=== PATIENT | male | born 1960 | race Caucasian/White ===

== ENCOUNTER 2020-12-25 09:24 | Inpatient (IN) | payer OTHER ==
[2020-12-25 09:51] VITALS: BMI 21.9
[2020-12-25] MEDS ORDERED: NICOTINE POLACRILEX 2 MG GUM BUC PRN (10:27)
[2020-12-25] MEDS ORDERED: BISMUTH SUBSALICYLATE 262 MG/15 ML BTL PO PRN (10:27)
[2020-12-25] MEDS ORDERED: MENTHOL/PHENOL 1 EACH UD MM PRN (10:27)
[2020-12-25] MEDS ORDERED: MAGNESIUM HYDROX 2400MG/30ML ORAL SUSPENSION 30 ML CUP PO PRN (10:27)
[2020-12-25] MEDS ORDERED: METHADONE HCL 10 MG TABLET (FOR DETOX USE ONLY) PO ONE (10:27)
[2020-12-25] MEDS ORDERED: ACETAMINOPHEN 325 MG TABLET (FP) PO PRN ×2 (10:27)
[2020-12-25] MEDS ORDERED: IBUPROFEN 400 MG TABLET (FP) PO PRN (10:27)
[2020-12-25] MEDS ORDERED: MAGNESIUM CITRATE 300 ML BOTTLE PO PRN (10:27)
[2020-12-25] MEDS: NICOTINE 14 MG/24 HOURS TOPICAL PATCH TD SCH (11:50)
[2020-12-25] MEDS: ONDANSETRON *ODT* 4 MG TABLET SL PRN (11:50)
[2020-12-25] MEDS: FAMOTIDINE 20 MG TABLET PO SCH (11:50)
[2020-12-25] MEDS: PRENATAL VITAMINS W/ FOLIC ACID TABLET (FP) PO SCH (11:50)
[2020-12-25] MEDS: LISINOPRIL 10 MG TABLET PO SCH (11:50)
[2020-12-25] MEDS: ALBUTEROL SO4 HFA INHALER IH PRN (11:55)
[2020-12-25] MEDS ORDERED: hydrOXYzine PAMOATE 25 MG CAPSULE (FP) PO SCH (14:00)
[2020-12-25 16:30] LABS: HEMATOCRIT 41.1 % (35.4-49); HEMOGLOBIN 13.5 GM/dL (11.7-16.9); MCH 29.7 pg (25.7-33.7); MCHC 32.9 g/dl (32.0-35.9); MEAN CELL VOLUME 90.4 fl (80-96); MEAN PLT VOLUME 8.6 fl (7.5-11.1); PLATELET COUNT 265 10^3/uL (134-434); RBC 4.54 M/mm3 (4.00-5.60); RDW 13.9 % (11.9-15.9); WHITE BLOOD COUNT 8.6 K/mm3 (4.0-10.0)
[2020-12-25 16:40] LABS: BLOOD UREA NITROGEN 13.1 mg/dL (7-18); CALCIUM 9.1 mg/dL (8.5-10.1)
[2020-12-25 16:41] LABS: ALBUMIN 3.9 g/dl (3.4-5.0)
[2020-12-25 16:43] LABS: CREATININE 0.8 mg/dL (0.55-1.3); TOT PROT 7.6 g/dl (6.4-8.2)
[2020-12-25 16:47] LABS: BILIRUBIN,TOTAL 1.1 mg/dL (0.2-1)
[2020-12-25 17:27] LABS: HIV INTERPRETATION NEGATIVE (NEGATIVE)
[2020-12-25] MEDS: AMITRIPTYLINE HCL 25 MG TABLET PO SCH (22:40)
[2020-12-25] MEDS: THIAMINE HCL 100 MG TABLET (FP) PO SCH (22:41)
[2020-12-25] MEDS: MONTELUKAST NA 10 MG TABLET PO SCH (22:41)
[2020-12-25] MEDS: MELATONIN 5 MG TABLETS PO SCH (22:43)
[2020-12-26] MEDS: hydrOXYzine PAMOATE 25 MG CAPSULE (FP) PO PRN ×2 (08:42→20:05)
[2020-12-26] MEDS: METHOCARBAMOL 500 MG TABLET PO PRN ×2 (08:42→20:05)
[2020-12-26] MEDS ORDERED: METHADONE HCL 10 MG TABLET (FOR DETOX USE ONLY) ONE (09:20)
[2020-12-26] MEDS ORDERED: METHADONE HCL 5 MG TABLET (FOR DETOX USE ONLY) ONE (09:20)
[2020-12-26] MEDS ORDERED: METHADONE (DETOX) 20 MG, METHADONE (DETOX) 5 MG PO ONE (10:00)
[2020-12-26] MEDS: NICOTINE 14 MG/24 HOURS TOPICAL PATCH TD SCH (10:13)
[2020-12-26] MEDS: PRENATAL VITAMINS W/ FOLIC ACID TABLET (FP) PO SCH (10:13)
[2020-12-26] MEDS: FAMOTIDINE 20 MG TABLET PO SCH (10:13)
[2020-12-26] MEDS: LISINOPRIL 10 MG TABLET PO SCH (10:13)
[2020-12-26] MEDS: ALBUTEROL SO4 HFA INHALER IH PRN (10:16)
[2020-12-26] MEDS: THIAMINE HCL 100 MG TABLET (FP) PO SCH (22:15)
[2020-12-26] MEDS: MONTELUKAST NA 10 MG TABLET PO SCH (22:15)
[2020-12-26] MEDS: AMITRIPTYLINE HCL 25 MG TABLET PO SCH (22:15)
[2020-12-26] MEDS: MAG HYDROX/AL HYDROX/SIMETH 30 ML UNIT-DOSE CUP PO PRN (22:16)
[2020-12-26] MEDS: MELATONIN 5 MG TABLETS PO SCH (22:53)
[2020-12-27] MEDS: ONDANSETRON *ODT* 4 MG TABLET SL PRN ×3 (00:33→20:18)
[2020-12-27] MEDS ORDERED: TRIMETHOBENZAMIDE HCL 200MG/2ML INJ IM ONE (02:48)
[2020-12-27] MEDS ORDERED: DICYCLOMINE HCL 10 MG CAPSULE PO PRN (07:38)
[2020-12-27] MEDS: diazePAM 5 MG TABLET PO PRN ×2 (09:05→20:45)
[2020-12-27] MEDS: METHOCARBAMOL 500 MG TABLET PO PRN (09:06)
[2020-12-27] MEDS ORDERED: METHADONE HCL 10 MG TABLET (FOR DETOX USE ONLY) PO ONE (10:00)
[2020-12-27] MEDS ORDERED: PANTOPRAZOLE 40 MG TABLET PO ONE (10:06)
[2020-12-27] MEDS: NICOTINE 14 MG/24 HOURS TOPICAL PATCH TD SCH (10:57)
[2020-12-27] MEDS: FAMOTIDINE 20 MG TABLET PO SCH (10:57)
[2020-12-27] MEDS: LISINOPRIL 10 MG TABLET PO SCH (10:57)
[2020-12-27] MEDS: PRENATAL VITAMINS W/ FOLIC ACID TABLET (FP) PO SCH (10:57)
[2020-12-27] MEDS: MAG HYDROX/AL HYDROX/SIMETH 30 ML UNIT-DOSE CUP PO PRN (11:00)
[2020-12-27] MEDS: ALBUTEROL SO4 HFA INHALER IH PRN (11:00)
[2020-12-27] MEDS: cloNIDine HCL 0.1 MG TABLET PO PRN ×2 (13:21→18:57)
[2020-12-27] MEDS: hydrOXYzine PAMOATE 25 MG CAPSULE (FP) PO PRN (20:46)
[2020-12-27] MEDS ORDERED: cloNIDine HCL 0.1 MG TABLET PO ONE (21:50)
[2020-12-27] MEDS: MONTELUKAST NA 10 MG TABLET PO SCH (23:08)
[2020-12-27] MEDS: AMITRIPTYLINE HCL 25 MG TABLET PO SCH (23:08)
[2020-12-27] MEDS: MELATONIN 5 MG TABLETS PO SCH (23:09)
[2020-12-27] MEDS: THIAMINE HCL 100 MG TABLET (FP) PO SCH (23:09)
[2020-12-28] MEDS ORDERED: METHADONE HCL 10 MG TABLET (FOR DETOX USE ONLY) ONE (09:02)
[2020-12-28] MEDS ORDERED: METHADONE HCL 5 MG TABLET (FOR DETOX USE ONLY) ONE (09:02)
[2020-12-28] MEDS: PRENATAL VITAMINS W/ FOLIC ACID TABLET (FP) PO SCH (09:27)
[2020-12-28] MEDS: FAMOTIDINE 20 MG TABLET PO SCH (09:27)
[2020-12-28] MEDS: NICOTINE 14 MG/24 HOURS TOPICAL PATCH TD SCH (09:28)
[2020-12-28] MEDS: LISINOPRIL 10 MG TABLET PO SCH (09:29)
[2020-12-28] MEDS ORDERED: PANTOPRAZOLE 40 MG TABLET PO SCH (10:00)
[2020-12-28] MEDS ORDERED: METHADONE (DETOX) 10 MG, METHADONE (DETOX) 5 MG PO ONE (10:00)
[2020-12-28 10:44] VITALS: BP 148/89; PULSE 99; TEMP 97.1
[2020-12-29] MEDS ORDERED: METHADONE HCL 10 MG TABLET (FOR DETOX USE ONLY) PO ONE (10:00)
[2020-12-30] MEDS ORDERED: METHADONE HCL 5 MG TABLET (FOR DETOX USE ONLY) PO ONE (06:00)
== END 2020-12-28 10:15 | disposition home or self-care (01) | DRG 897 ==
LOC: YASAS 09:24 → Y3N 10:51
PROVIDERS: ADMIT Allergy & Immunology; ATTEND Allergy & Immunology
PROC: HZ2ZZZZ Detoxification Services for Substance Abuse Treatment (ICD-10-PCS; principal; 2020-12-25)
DX: F11.23 Opioid dependence with withdrawal (principal); F13.20 Sedative, hypnotic or anxiolytic dependence, uncomplicated; F14.20 Cocaine dependence, uncomplicated; F10.230 Alcohol dependence with withdrawal, uncomplicated; F12.20 Cannabis dependence, uncomplicated; F17.210 Nicotine dependence, cigarettes, uncomplicated; I10 Essential (primary) hypertension; J44.9 Chronic obstructive pulmonary disease, unspecified
CPT/HCPCS: 36415; 80053; 85027; 86780; 87389; 93005; 93010; C9803; J0735; Q0162; U0003; U0005

== ENCOUNTER 2021-04-07 11:16 | Inpatient (IN) | payer OTHER ==
[2021-04-07 12:43] VITALS: BMI 22.2
[2021-04-07] MEDS ORDERED: ACETAMINOPHEN 325 MG TABLET (FP) PO PRN ×2 (13:48)
[2021-04-07] MEDS ORDERED: METHOCARBAMOL 500 MG TABLET PO PRN (13:48)
[2021-04-07] MEDS ORDERED: MAGNESIUM CITRATE 300 ML BOTTLE PO PRN (13:48)
[2021-04-07] MEDS ORDERED: ONDANSETRON *ODT* 4 MG TABLET SL PRN (13:48)
[2021-04-07] MEDS ORDERED: MENTHOL/PHENOL 1 EACH UD MM PRN (13:48)
[2021-04-07] MEDS ORDERED: BISMUTH SUBSALICYLATE 262 MG/15 ML BTL PO PRN (13:48)
[2021-04-07] MEDS ORDERED: IBUPROFEN 400 MG TABLET (FP) PO PRN (13:48)
[2021-04-07] MEDS ORDERED: diazePAM 5 MG TABLET PO PRN (13:48)
[2021-04-07] MEDS ORDERED: MAGNESIUM HYDROX 2400MG/30ML ORAL SUSPENSION 30 ML CUP PO PRN (13:48)
[2021-04-07] MEDS ORDERED: NICOTINE 10 MG CARTRIDGE (INHALER) IH PRN (13:48)
[2021-04-07] MEDS ORDERED: MAG HYDROX/AL HYDROX/SIMETH 30 ML UNIT-DOSE CUP PO PRN (13:48)
[2021-04-07] MEDS ORDERED: diazePAM 5 MG TABLET PO ONE (14:11)
[2021-04-07] MEDS ORDERED: cloNIDine HCL 0.1 MG TABLET PO PRN (14:25)
[2021-04-07] MEDS ORDERED: methaDONE HCL 10 MG TABLET (FOR DETOX USE ONLY) PO ONE (14:25)
[2021-04-07] MEDS: hydrOXYzine PAMOATE 25 MG CAPSULE (FP) PO SCH ×3 (15:26→22:11)
[2021-04-07] MEDS: BUDESONIDE/FORMETEROL FUMARATE 80/4.5 mcg INHALER IH SCH ×2 (15:26→22:09)
[2021-04-07] MEDS: NICOTINE 7 MG/24 HOURS TOPICAL PATCH TD SCH (15:28)
[2021-04-07 17:38] LABS: HEMATOCRIT 38.9 % (35.4-49); HEMOGLOBIN 13.4 GM/dL (11.7-16.9); MCH 31.1 pg (25.7-33.7); MCHC 34.4 g/dl (32.0-35.9); MEAN CELL VOLUME 90.4 fl (80-96); MEAN PLT VOLUME 8.3 fl (7.5-11.1); PLATELET COUNT 256 10^3/uL (134-434); RDW 13.9 % (11.9-15.9); WHITE BLOOD COUNT 8.2 K/mm3 (4.0-10.0)
[2021-04-07 17:44] LABS: ALBUMIN 3.7 g/dl (3.4-5.0); BLOOD UREA NITROGEN 12.9 mg/dL (7-18); CALCIUM 9.1 mg/dL (8.5-10.1)
[2021-04-07 17:48] LABS: CREATININE 0.8 mg/dL (0.55-1.3)
[2021-04-07 17:49] LABS: BILIRUBIN,TOTAL 0.4 mg/dL (0.2-1); TOT PROT 7.7 g/dl (6.4-8.2)
[2021-04-07] MEDS: ALBUTEROL SO4 HFA INHALER IH PRN ×2 (18:19→22:13)
[2021-04-07] MEDS: diazePAM 5 MG TABLET PO SCH ×2 (18:20→22:08)
[2021-04-07] MEDS: THIAMINE HCL 100 MG TABLET (FP) PO SCH (22:08)
[2021-04-07] MEDS: MONTELUKAST NA 10 MG TABLET PO SCH (22:08)
[2021-04-07] MEDS: AMITRIPTYLINE HCL 25 MG TABLET PO SCH (22:10)
[2021-04-07] MEDS: MELATONIN 5 MG TABLETS PO SCH (22:10)
[2021-04-08] MEDS: diazePAM 5 MG TABLET PO SCH ×4 (05:37→22:13)
[2021-04-08] MEDS: hydrOXYzine PAMOATE 25 MG CAPSULE (FP) PO SCH ×5 (05:37→22:13)
[2021-04-08] MEDS ORDERED: methaDONE HCL 10 MG TABLET (FOR DETOX USE ONLY) ONE (09:27)
[2021-04-08] MEDS ORDERED: FAMOTIDINE 20 MG TABLET PO SCH (10:00)
[2021-04-08] MEDS ORDERED: LISINOPRIL 10 MG TABLET PO SCH (10:00)
[2021-04-08] MEDS ORDERED: GABAPENTIN 300 MG CAPSULE PO SCH (10:00)
[2021-04-08] MEDS ORDERED: PRENATAL VITAMINS W/ FOLIC ACID TABLET (FP) PO SCH (10:00)
[2021-04-08] MEDS: NICOTINE 7 MG/24 HOURS TOPICAL PATCH TD SCH (10:18)
[2021-04-08] MEDS: BUDESONIDE/FORMETEROL FUMARATE 80/4.5 mcg INHALER IH SCH ×2 (10:18→22:13)
[2021-04-08] MEDS: LISINOPRIL 10 MG TABLET PO SCH ×2 (10:42→22:13)
[2021-04-08] MEDS: MONTELUKAST NA 10 MG TABLET PO SCH (22:12)
[2021-04-08] MEDS: THIAMINE HCL 100 MG TABLET (FP) PO SCH (22:13)
[2021-04-08] MEDS: ALBUTEROL SO4 HFA INHALER IH PRN (22:15)
[2021-04-08] MEDS: AMITRIPTYLINE HCL 25 MG TABLET PO SCH (22:15)
[2021-04-08] MEDS: MELATONIN 5 MG TABLETS PO SCH (22:15)
[2021-04-08 22:35] LABS: HIV INTERPRETATION NEGATIVE (NEGATIVE)
[2021-04-09] MEDS: hydrOXYzine PAMOATE 25 MG CAPSULE (FP) PO SCH (05:42)
[2021-04-09] MEDS: ALBUTEROL SO4 HFA INHALER IH PRN (05:44)
[2021-04-09] MEDS ORDERED: diazePAM 5 MG TABLET PO SCH (06:00)
[2021-04-09 09:32] VITALS: BP 119/99; PULSE 78; TEMP 98.3
[2021-04-09] MEDS ORDERED: methaDONE HCL 10 MG TABLET (FOR DETOX USE ONLY) PO ONE (10:00)
[2021-04-10] MEDS ORDERED: diazePAM 5 MG TABLET PO SCH (06:00)
[2021-04-11] MEDS ORDERED: diazePAM 5 MG TABLET PO ONE (06:00)
[2021-04-11] MEDS ORDERED: methaDONE HCL 10 MG TABLET (FOR DETOX USE ONLY) PO ONE (10:00)
== END 2021-04-09 08:46 | disposition left against medical advice (07) | DRG 894 ==
LOC: YASAS 11:16 → Y6N 14:23
PROVIDERS: ADMIT Allergy & Immunology; ATTEND Allergy & Immunology
PROC: HZ2ZZZZ Detoxification Services for Substance Abuse Treatment (ICD-10-PCS; principal; 2021-04-07)
DX: F11.23 Opioid dependence with withdrawal (principal); F14.20 Cocaine dependence, uncomplicated; F10.230 Alcohol dependence with withdrawal, uncomplicated; F12.20 Cannabis dependence, uncomplicated; F17.213 Nicotine dependence, cigarettes, with withdrawal; I10 Essential (primary) hypertension; J43.9 Emphysema, unspecified; J45.20 Mild intermittent asthma, uncomplicated; K21.9 Gastro-esophageal reflux disease without esophagitis; R00.0 Tachycardia, unspecified
CPT/HCPCS: 36415; 80053; 85027; 86780; 87389; C9803; J0735; U0003; U0005

== ENCOUNTER 2022-01-21 11:16 | Inpatient (IN) | payer OTHER ==
[2022-01-21 12:29] VITALS: BMI 19.4
[2022-01-21] MEDS ORDERED: MAGNESIUM HYDROX 2400MG/30ML ORAL SUSPENSION 30 ML CUP PO PRN (12:42)
[2022-01-21] MEDS ORDERED: NICOTINE 10 MG CARTRIDGE (INHALER) IH PRN (12:42)
[2022-01-21] MEDS ORDERED: ONDANSETRON *ODT* 4 MG TABLET SL PRN (12:42)
[2022-01-21] MEDS ORDERED: cloNIDine HCL 0.1 MG TABLET PO PRN (12:42)
[2022-01-21] MEDS ORDERED: ACETAMINOPHEN 325 MG TABLET (FP) PO PRN ×2 (12:42)
[2022-01-21] MEDS ORDERED: IBUPROFEN 400 MG TABLET (FP) PO PRN (12:42)
[2022-01-21] MEDS ORDERED: methaDONE HCL 10 MG TABLET (FOR DETOX USE ONLY) PO ONE (12:42)
[2022-01-21] MEDS ORDERED: LOPERAMIDE HCL 2 MG CAPSULE PO PRN (12:42)
[2022-01-21] MEDS ORDERED: DICYCLOMINE HCL 10 MG CAPSULE PO PRN (12:42)
[2022-01-21] MEDS ORDERED: BISMUTH SUBSALICYLATE 262 MG/15 ML BTL PO PRN (12:42)
[2022-01-21] MEDS ORDERED: MAG HYDROX/AL HYDROX/SIMETH 30 ML UNIT-DOSE CUP PO PRN (12:42)
[2022-01-21] MEDS ORDERED: IBUPROFEN 600 MG TABLET (FP) PO PRN (12:42)
[2022-01-21] MEDS ORDERED: MAGNESIUM CITRATE 300 ML BOTTLE PO PRN (12:42)
[2022-01-21] MEDS ORDERED: BENZOCAINE/MENTHOL (CHLORASEPTIC ) LOZENGE MM PRN (12:42)
[2022-01-21] MEDS: PRENATAL VITAMINS W/ FOLIC ACID TABLET (FP) PO SCH (13:46)
[2022-01-21] MEDS: hydrOXYzine PAMOATE 25 MG CAPSULE (FP) PO SCH ×3 (13:46→22:30)
[2022-01-21] MEDS: METHOCARBAMOL 500 MG TABLET PO PRN (13:46)
[2022-01-21] MEDS: NICOTINE 14 MG/24 HOURS TOPICAL PATCH TD SCH (13:46)
[2022-01-21] MEDS ORDERED: ALBUTEROL SO4 HFA INHALER IH PRN ×2 (15:21→15:29)
[2022-01-21] MEDS: BUDESONIDE/FORMETEROL FUMARATE 80/4.5 mcg INHALER IH SCH (22:28)
[2022-01-21] MEDS: CARVEDILOL 12.5 MG TABLET (FP) PO SCH (22:29)
[2022-01-21] MEDS: MONTELUKAST NA 10 MG TABLET PO SCH (22:29)
[2022-01-21] MEDS: MELATONIN 5 MG TABLETS PO SCH (22:29)
[2022-01-21] MEDS: THIAMINE HCL 100 MG TABLET (FP) PO SCH (22:29)
[2022-01-21] MEDS: ATORVASTATIN CA 80 MG TABLET (FP) PO SCH (22:29)
[2022-01-22] MEDS: hydrOXYzine PAMOATE 25 MG CAPSULE (FP) PO SCH ×5 (08:07→22:23)
[2022-01-22] MEDS ORDERED: CLOPIDOGREL BISULFATE 75 MG TABLET (FP) PO SCH (10:00)
[2022-01-22] MEDS ORDERED: FAMOTIDINE 20 MG TABLET PO SCH (10:00)
[2022-01-22] MEDS ORDERED: ASPIRIN 81 MG CHEWABLE TABLETS PO SCH (10:00)
[2022-01-22] MEDS ORDERED: LISINOPRIL 10 MG TABLET PO SCH (10:00)
[2022-01-22] MEDS: METHOCARBAMOL 500 MG TABLET PO PRN (10:28)
[2022-01-22] MEDS: PRENATAL VITAMINS W/ FOLIC ACID TABLET (FP) PO SCH (10:28)
[2022-01-22] MEDS: NICOTINE 14 MG/24 HOURS TOPICAL PATCH TD SCH (10:29)
[2022-01-22] MEDS: CARVEDILOL 12.5 MG TABLET (FP) PO SCH ×2 (10:29→22:22)
[2022-01-22] MEDS: BUDESONIDE/FORMETEROL FUMARATE 80/4.5 mcg INHALER IH SCH ×2 (10:29→22:22)
[2022-01-22 11:09] LABS: HEMATOCRIT 36.8 % (35.4-49); HEMOGLOBIN 12.9 GM/dL (11.7-16.9); MCH 30.9 pg (25.7-33.7); MCHC 35.1 g/dl (32.0-35.9); MEAN CELL VOLUME 88.1 fl (80-96); MEAN PLT VOLUME 7.6 fl (7.5-11.1); PLATELET COUNT 261 10^3/uL (134-434); RBC 4.17 M/mm3 (4.00-5.60); RDW 13.4 % (11.9-15.9); WHITE BLOOD COUNT 7.3 K/mm3 (4.0-10.0)
[2022-01-22 11:31] LABS: CALCIUM 9.2 mg/dL (8.5-10.1)
[2022-01-22 11:32] LABS: ALBUMIN 3.1 g/dl (3.4-5.0); BLOOD UREA NITROGEN 8.2 mg/dL (7-18)
[2022-01-22 11:35] LABS: CREATININE 0.6 mg/dL (0.55-1.3)
[2022-01-22 11:37] LABS: BILIRUBIN,TOTAL 0.5 mg/dL (0.2-1); TOT PROT 6.6 g/dl (6.4-8.2)
[2022-01-22 20:56] VITALS: RESP 17; TEMP 97.3
[2022-01-22] MEDS: MELATONIN 5 MG TABLETS PO SCH (22:21)
[2022-01-22] MEDS: MONTELUKAST NA 10 MG TABLET PO SCH (22:22)
[2022-01-22] MEDS: ATORVASTATIN CA 80 MG TABLET (FP) PO SCH (22:22)
[2022-01-22] MEDS: THIAMINE HCL 100 MG TABLET (FP) PO SCH (22:24)
[2022-01-23 06:48] VITALS: BP 133/78; PULSE 62
[2022-01-23] MEDS: hydrOXYzine PAMOATE 25 MG CAPSULE (FP) PO SCH (06:56)
[2022-01-23] MEDS ORDERED: methaDONE HCL 10 MG TABLET (FOR DETOX USE ONLY) PO ONE (10:00)
[2022-01-25] MEDS ORDERED: methaDONE HCL 10 MG TABLET (FOR DETOX USE ONLY) PO ONE (10:00)
== END 2022-01-23 08:10 | disposition left against medical advice (07) | DRG 894 ==
LOC: YASAS 11:16 → SUATTDRO 11:16 → Y3N 12:41
PROVIDERS: ADMIT Allergy & Immunology; ATTEND Surgery
PROC: HZ2ZZZZ Detoxification Services for Substance Abuse Treatment (ICD-10-PCS; principal; 2022-01-21)
DX: F11.23 Opioid dependence with withdrawal (principal); F14.20 Cocaine dependence, uncomplicated; F10.230 Alcohol dependence with withdrawal, uncomplicated; F17.210 Nicotine dependence, cigarettes, uncomplicated; I10 Essential (primary) hypertension; J43.9 Emphysema, unspecified; E78.5 Hyperlipidemia, unspecified; I25.10 Atherosclerotic heart disease of native coronary artery without angina pectoris; Z95.5 Presence of coronary angioplasty implant and graft
CPT/HCPCS: 36415; 80053; 85027; 86780; C9803-CS; U0003; U0005

== ENCOUNTER 2023-02-22 15:48 | Inpatient (IN) | payer OTHER ==
[2023-02-22 16:52] VITALS: BMI 21.6
[2023-02-22] MEDS ORDERED: MAG HYDROX/AL HYDROX/SIMETH 30 ML UNIT-DOSE CUP PO PRN (18:50)
[2023-02-22] MEDS ORDERED: MAGNESIUM HYDROX 2400MG/30ML ORAL SUSPENSION 30 ML CUP PO PRN (18:50)
[2023-02-22] MEDS ORDERED: DICYCLOMINE HCL 10 MG CAPSULE PO PRN (18:50)
[2023-02-22] MEDS ORDERED: ONDANSETRON *ODT* 4 MG TABLET SL PRN (18:50)
[2023-02-22] MEDS ORDERED: hydrOXYzine PAMOATE 25 MG CAPSULE (FP) PO PRN (18:50)
[2023-02-22] MEDS ORDERED: POLYETHYLENE GLYCOL (HEALTHYLAX) 3350 17 GM PACKET PO PRN (18:50)
[2023-02-22] MEDS ORDERED: guaiFENesin 600 MG TABLET.ER (FP) PO PRN (18:50)
[2023-02-22] MEDS ORDERED: LOPERAMIDE HCL 2 MG CAPSULE PO PRN (18:50)
[2023-02-22] MEDS ORDERED: BENZOCAINE/MENTHOL (CHLORASEPTIC ) LOZENGE MM PRN (18:50)
[2023-02-22] MEDS ORDERED: NALOXONE HCL (KLOXXADO) 8 MG SPRAY NS PRN (18:50)
[2023-02-22] MEDS ORDERED: ACETAMINOPHEN 325 MG TABLET (FP) PO PRN (18:50)
[2023-02-22] MEDS ORDERED: BISMUTH SUBSALICYLATE 524 MG/30 ML PO PRN (18:50)
[2023-02-22] MEDS ORDERED: BENZONATATE 200 MG CAPSULE PO PRN (18:50)
[2023-02-22] MEDS ORDERED: IBUPROFEN 400 MG TABLET (FP) PO PRN (18:50)
[2023-02-22] MEDS ORDERED: NALOXONE HCL 0.4 MG/ML VIAL IM PRN (18:50)
[2023-02-22] MEDS ORDERED: methaDONE HCL 10 MG TABLET (FOR DETOX USE ONLY) PO ONE (18:50)
[2023-02-22] MEDS ORDERED: diazePAM 5 MG TABLET PO PRN (18:50)
[2023-02-22] MEDS ORDERED: IBUPROFEN 600 MG TABLET (FP) PO PRN (18:50)
[2023-02-22] MEDS ORDERED: methaDONE HCL 10 MG TABLET (FOR DETOX USE ONLY) ONE (19:16)
[2023-02-22] MEDS ORDERED: IBUPROFEN 600 MG TABLET (FP) PO ONE (19:43)
[2023-02-22] MEDS ORDERED: DICYCLOMINE HCL 10 MG CAPSULE ONE (19:43)
[2023-02-22] MEDS: predniSONE 20 MG TABLET (UD) PO SCH (19:53)
[2023-02-22] MEDS ORDERED: ALBUTEROL SO4 2.5/IPRATROPIUM 0.5 INH SOL 3 ML VIAL.NEB. NEB ONE (20:00)
[2023-02-22] MEDS ORDERED: CARVEDILOL 6.25 MG TABLET (FP) PO ONE (21:45)
[2023-02-22] MEDS ORDERED: CARVEDILOL 12.5 MG TABLET (FP) PO SCH (22:00)
[2023-02-22] MEDS: FAMOTIDINE 20 MG TABLET PO SCH (22:22)
[2023-02-22] MEDS: MONTELUKAST NA 10 MG TABLET PO SCH (22:22)
[2023-02-22] MEDS: THIAMINE HCL 100 MG TABLET (FP) PO SCH (22:22)
[2023-02-22] MEDS: ATORVASTATIN CA 80 MG TABLET (FP) PO SCH (22:22)
[2023-02-22] MEDS: diazePAM 5 MG TABLET PO SCH (22:24)
[2023-02-22] MEDS: BUDESONIDE/FORMETEROL FUMARATE 80/4.5 mcg INHALER IH SCH (22:25)
[2023-02-22] MEDS: MELATONIN 5 MG TABLETS PO SCH (22:26)
[2023-02-22] MEDS ORDERED: ALBUTEROL SO4 2.5/IPRATROPIUM 0.5 INH SOL 3 ML VIAL.NEB. NEB PRN (23:00)
[2023-02-23] MEDS: diazePAM 5 MG TABLET PO SCH ×4 (05:13→22:16)
[2023-02-23] MEDS: ALBUTEROL SO4 HFA INHALER IH PRN ×2 (05:15→22:15)
[2023-02-23] MEDS ORDERED: LISINOPRIL 5 MG TABLET PO SCH (10:00)
[2023-02-23] MEDS: LISINOPRIL 10 MG TABLET PO SCH (10:06)
[2023-02-23] MEDS: BUDESONIDE/FORMETEROL FUMARATE 80/4.5 mcg INHALER IH SCH ×2 (10:06→22:17)
[2023-02-23] MEDS: CLOPIDOGREL BISULFATE 75 MG TABLET (FP) PO SCH (10:06)
[2023-02-23] MEDS: ASPIRIN COATED 81 MG TABLET.EC PO SCH (10:06)
[2023-02-23] MEDS: METHOCARBAMOL 500 MG TABLET PO PRN (10:07)
[2023-02-23] MEDS: FAMOTIDINE 20 MG TABLET PO SCH ×2 (10:07→22:15)
[2023-02-23] MEDS: FUROSEMIDE 20 MG TABLET (FP) PO SCH (10:07)
[2023-02-23] MEDS: PRENATAL VITAMINS W/ FOLIC ACID TABLET (FP) PO SCH (10:10)
[2023-02-23 10:29] LABS: POTASSIUM 4.4 mmol/L (3.5-5.1)
[2023-02-23 10:32] LABS: HEMATOCRIT 31.5 % (35.4-49); HEMOGLOBIN 10.8 GM/dL (11.7-16.9); MCH 30.2 pg (25.7-33.7); MCHC 34.3 g/dl (32.0-35.9); MEAN CELL VOLUME 88.2 fl (80-96); MEAN PLT VOLUME 7.8 fl (7.5-11.1); PLATELET COUNT 230 10^3/uL (134-434); RBC 3.57 M/mm3 (4.00-5.60); RDW 13.8 % (11.9-15.9); WHITE BLOOD COUNT 6.4 K/mm3 (4.0-10.0)
[2023-02-23 10:39] LABS: CALCIUM 8.4 mg/dL (8.5-10.1)
[2023-02-23 10:40] LABS: ALBUMIN 2.8 g/dl (3.4-5.0); BLOOD UREA NITROGEN 10.9 mg/dL (7-18)
[2023-02-23] MEDS: CARVEDILOL 12.5 MG TABLET (FP) PO SCH ×2 (10:42→22:16)
[2023-02-23] MEDS: predniSONE 20 MG TABLET (UD) PO SCH (10:42)
[2023-02-23 10:43] LABS: CREATININE 0.6 mg/dL (0.55-1.3)
[2023-02-23 10:44] LABS: TOT PROT 6.3 g/dl (6.4-8.2)
[2023-02-23 10:45] LABS: BILIRUBIN,TOTAL 0.3 mg/dL (0.2-1)
[2023-02-23] MEDS: cloNIDine HCL 0.1 MG TABLET PO PRN (17:17)
[2023-02-23] MEDS: THIAMINE HCL 100 MG TABLET (FP) PO SCH (22:15)
[2023-02-23] MEDS: MONTELUKAST NA 10 MG TABLET PO SCH (22:15)
[2023-02-23] MEDS: AMITRIPTYLINE HCL 25 MG TABLET PO SCH (22:15)
[2023-02-23] MEDS: ATORVASTATIN CA 80 MG TABLET (FP) PO SCH (22:15)
[2023-02-23] MEDS: MELATONIN 5 MG TABLETS PO SCH (22:50)
[2023-02-24] MEDS: diazePAM 5 MG TABLET PO SCH ×3 (05:23→21:36)
[2023-02-24] MEDS: ALBUTEROL SO4 HFA INHALER IH PRN ×2 (05:24→21:37)
[2023-02-24] MEDS: BUDESONIDE/FORMETEROL FUMARATE 80/4.5 mcg INHALER IH SCH ×2 (09:00→21:37)
[2023-02-24] MEDS ORDERED: methaDONE HCL 10 MG TABLET (FOR DETOX USE ONLY) PO ONE (10:00)
[2023-02-24] MEDS: FUROSEMIDE 20 MG TABLET (FP) PO SCH (10:05)
[2023-02-24] MEDS: FAMOTIDINE 20 MG TABLET PO SCH ×2 (10:05→21:36)
[2023-02-24] MEDS: CARVEDILOL 12.5 MG TABLET (FP) PO SCH ×2 (10:05→21:41)
[2023-02-24] MEDS: CLOPIDOGREL BISULFATE 75 MG TABLET (FP) PO SCH (10:05)
[2023-02-24] MEDS: LISINOPRIL 10 MG TABLET PO SCH (10:05)
[2023-02-24] MEDS: predniSONE 20 MG TABLET (UD) PO SCH (10:05)
[2023-02-24] MEDS: ASPIRIN COATED 81 MG TABLET.EC PO SCH (10:05)
[2023-02-24] MEDS: PRENATAL VITAMINS W/ FOLIC ACID TABLET (FP) PO SCH (10:06)
[2023-02-24] MEDS: cloNIDine HCL 0.1 MG TABLET PO PRN (12:44)
[2023-02-24] MEDS: THIAMINE HCL 100 MG TABLET (FP) PO SCH (21:35)
[2023-02-24] MEDS: MONTELUKAST NA 10 MG TABLET PO SCH (21:36)
[2023-02-24] MEDS: ATORVASTATIN CA 80 MG TABLET (FP) PO SCH (21:36)
[2023-02-24] MEDS: AMITRIPTYLINE HCL 25 MG TABLET PO SCH (21:41)
[2023-02-24] MEDS: METHOCARBAMOL 500 MG TABLET PO PRN (21:41)
[2023-02-24] MEDS ORDERED: SUVOREXANT 5 MG TABLET PO PRN (22:00)
[2023-02-25] MEDS ORDERED: diazePAM 5 MG TABLET PO SCH (06:00)
[2023-02-25] MEDS: CLOPIDOGREL BISULFATE 75 MG TABLET (FP) PO SCH (09:01)
[2023-02-25] MEDS: FAMOTIDINE 20 MG TABLET PO SCH (09:01)
[2023-02-25] MEDS: LISINOPRIL 10 MG TABLET PO SCH (09:01)
[2023-02-25] MEDS: FUROSEMIDE 20 MG TABLET (FP) PO SCH (09:02)
[2023-02-25] MEDS: ASPIRIN COATED 81 MG TABLET.EC PO SCH (09:02)
[2023-02-25] MEDS: PRENATAL VITAMINS W/ FOLIC ACID TABLET (FP) PO SCH (09:02)
[2023-02-25] MEDS: CARVEDILOL 12.5 MG TABLET (FP) PO SCH (09:02)
[2023-02-25] MEDS ORDERED: predniSONE 10 MG TABLET (UD) PO ONE (10:00)
[2023-02-25] MEDS: BUDESONIDE/FORMETEROL FUMARATE 80/4.5 mcg INHALER IH SCH (10:46)
[2023-02-25 12:56] VITALS: BP 188/101; PULSE 73; RESP 17; TEMP 96.9
[2023-02-26] MEDS ORDERED: diazePAM 5 MG TABLET PO ONE (06:00)
[2023-02-26] MEDS ORDERED: methaDONE HCL 10 MG TABLET (FOR DETOX USE ONLY) PO ONE (10:00)
[2023-02-26] MEDS ORDERED: predniSONE 20 MG TABLET (UD) PO ONE (10:00)
[2023-02-27] MEDS ORDERED: predniSONE 10 MG TABLET (UD) PO ONE (06:00)
== END 2023-02-25 09:06 | disposition left against medical advice (07) | DRG 894 ==
LOC: YASAS 15:48 → UNDOADMIN 19:55 → Y6N 19:55
PROVIDERS: ADMIT Allergy & Immunology; ATTEND Surgery
PROC: HZ2ZZZZ Detoxification Services for Substance Abuse Treatment (ICD-10-PCS; principal; 2023-02-22)
DX: F10.230 Alcohol dependence with withdrawal, uncomplicated (principal); F11.20 Opioid dependence, uncomplicated; F19.282 Other psychoactive substance dependence with psychoactive substance-induced sleep disorder; F12.20 Cannabis dependence, uncomplicated; F17.213 Nicotine dependence, cigarettes, with withdrawal; I25.10 Atherosclerotic heart disease of native coronary artery without angina pectoris; I10 Essential (primary) hypertension; I25.2 Old myocardial infarction; Z95.5 Presence of coronary angioplasty implant and graft; J43.9 Emphysema, unspecified; K21.9 Gastro-esophageal reflux disease without esophagitis; Z87.11 Personal history of peptic ulcer disease; Z87.19 Personal history of other diseases of the digestive system
CPT/HCPCS: 36415; 80053; 82962; 85027; 86780; 87635; 87811; 94640

== ENCOUNTER 2023-12-22 12:19 | Inpatient (IN) | payer OTHER ==
[2023-12-22 12:44] VITALS: BMI 21.6
[2023-12-22] MEDS ORDERED: MAGNESIUM HYDROX 2400MG/30ML ORAL SUSPENSION 30 ML CUP PO PRN (13:17)
[2023-12-22] MEDS ORDERED: DICYCLOMINE HCL 10 MG CAPSULE PO PRN (13:17)
[2023-12-22] MEDS ORDERED: ACETAMINOPHEN 325 MG TABLET (FP) PO PRN (13:17)
[2023-12-22] MEDS ORDERED: NALOXONE HCL 0.4 MG/ML VIAL IM PRN (13:17)
[2023-12-22] MEDS ORDERED: LORazepam 1 MG TABLET PO PRN (13:17)
[2023-12-22] MEDS ORDERED: NALOXONE (NARCAN) HCL 4 MG/0.1 ML SPRAY NS PRN (13:17)
[2023-12-22] MEDS ORDERED: POLYETHYLENE GLYCOL (HEALTHYLAX) 3350 17 GM PACKET PO PRN (13:17)
[2023-12-22] MEDS ORDERED: LOPERAMIDE HCL 2 MG CAPSULE PO PRN (13:17)
[2023-12-22] MEDS ORDERED: BISMUTH SUBSALICYLATE 524 MG/30 ML PO PRN (13:17)
[2023-12-22] MEDS ORDERED: ONDANSETRON *ODT* 4 MG TABLET SL PRN (13:17)
[2023-12-22] MEDS ORDERED: BENZOCAINE/MENTHOL (CHLORASEPTIC ) LOZENGE MM PRN (13:17)
[2023-12-22] MEDS ORDERED: BENZONATATE 200 MG CAPSULE PO PRN (13:17)
[2023-12-22] MEDS ORDERED: IBUPROFEN 400 MG TABLET (FP) PO PRN (13:17)
[2023-12-22] MEDS ORDERED: IBUPROFEN 600 MG TABLET (FP) PO PRN (13:17)
[2023-12-22] MEDS ORDERED: methaDONE HCL 10 MG TABLET (FOR DETOX USE ONLY) ONE (14:05)
[2023-12-22] MEDS ORDERED: NICOTINE 14 MG/24 HOURS TOPICAL PATCH TD ONE (14:05)
[2023-12-22] MEDS ORDERED: PRENATAL VITAMINS W/ FOLIC ACID TABLET (FP) PO ONE (14:05)
[2023-12-22] MEDS: methaDONE HCL 10 MG TABLET (FOR DETOX USE ONLY) PO ONE (14:11)
[2023-12-22] MEDS: NICOTINE 14 MG/24 HOURS TOPICAL PATCH TD SCH (14:11)
[2023-12-22] MEDS: PRENATAL VITAMINS W/ FOLIC ACID TABLET (FP) PO SCH (14:12)
[2023-12-22] MEDS: LORazepam 2 MG TABLET PO SCH (17:27)
[2023-12-22] MEDS: ALBUTEROL SO4 HFA INHALER IH PRN (21:29)
[2023-12-22] MEDS: DOCUSATE SODIUM 100 MG CAPSULE (FP) PO SCH (22:31)
[2023-12-22] MEDS: THIAMINE 100 MG TABLET PO SCH (22:31)
[2023-12-22] MEDS: MELATONIN 5 MG TABLETS PO SCH (22:31)
[2023-12-22] MEDS: ATORVASTATIN CA 80 MG TABLET (FP) PO SCH (22:31)
[2023-12-22] MEDS: FAMOTIDINE 20 MG TABLET PO PRN (22:31)
[2023-12-22] MEDS: AMITRIPTYLINE HCL 75 MG TABLET PO SCH (22:31)
[2023-12-22] MEDS: BUDESONIDE/FORMETEROL FUMARATE 80/4.5 mcg INHALER IH SCH (22:32)
[2023-12-22] MEDS: MONTELUKAST NA 10 MG TABLET PO SCH (22:33)
[2023-12-23] MEDS: FUROSEMIDE 20 MG TABLET (FP) PO SCH (09:35)
[2023-12-23] MEDS: CLOPIDOGREL BISULFATE 75 MG TABLET (FP) PO SCH (09:35)
[2023-12-23] MEDS: LISINOPRIL 10 MG TABLET PO SCH (09:35)
[2023-12-23] MEDS ORDERED: ASPIRIN COATED 81 MG TABLET.EC PO SCH (10:00)
[2023-12-23] MEDS: MAG HYDROX/AL HYDROX/SIMETH 30 ML UNIT-DOSE CUP PO PRN (11:14)
[2023-12-23 11:37] LABS: HEMATOCRIT 35.3 % (35.4-49); HEMOGLOBIN 12.5 GM/dL (11.7-16.9); MCH 30.5 pg (25.7-33.7); MCHC 35.3 g/dl (32.0-35.9); MEAN CELL VOLUME 86.5 fl (80-96); MEAN PLT VOLUME 7.3 fl (7.5-11.1); PLATELET COUNT 289 10^3/uL (134-434); RBC 4.08 M/mm3 (4.00-5.60); RDW 14.3 % (11.9-15.9); WHITE BLOOD COUNT 4.8 K/mm3 (4.0-10.0)
[2023-12-23 11:42] LABS: POTASSIUM 4.7 mmol/L (3.5-5.1)
[2023-12-23 11:47] LABS: ALBUMIN 3.6 g/dl (3.4-5.0)
[2023-12-23 11:50] LABS: CALCIUM 8.7 mg/dL (8.5-10.1)
[2023-12-23 11:51] LABS: BLOOD UREA NITROGEN 8.7 mg/dL (7-18)
[2023-12-23 11:54] LABS: CREATININE 0.7 mg/dL (0.55-1.3)
[2023-12-23 11:55] LABS: TOT PROT 7.8 g/dl (6.4-8.2)
[2023-12-23 11:56] LABS: BILIRUBIN,TOTAL 0.3 mg/dL (0.2-1)
[2023-12-23] MEDS: METHOCARBAMOL 500 MG TABLET PO PRN (17:36)
[2023-12-23] MEDS: hydrOXYzine PAMOATE 25 MG CAPSULE (FP) PO PRN (17:37)
[2023-12-23] MEDS: guaiFENesin 600 MG TABLET.ER (FP) PO PRN (22:38)
[2023-12-24] MEDS: LORazepam 1 MG TABLET PO SCH (05:41)
[2023-12-24] MEDS: methaDONE HCL 10 MG TABLET (FOR DETOX USE ONLY) PO ONE (10:06)
[2023-12-24] MEDS: LACTULOSE 20 GM/30 ML UDC (FOR ORAL USE ONLY) PO SCH (17:19)
[2023-12-24] MEDS: cloNIDine HCL 0.1 MG TABLET PO PRN (17:24)
[2023-12-24] MEDS: AMITRIPTYLINE HCL PO SCH (22:25)
[2023-12-25] MEDS ORDERED: LORazepam 0.5 MG TABLET PO PRN
[2023-12-25] MEDS: LORazepam 0.5 MG TABLET PO SCH (05:26)
[2023-12-25 09:17] VITALS: BP 151/81; PULSE 97; RESP 16; TEMP 97.8
[2023-12-26] MEDS ORDERED: LORazepam 0.5 MG TABLET PO ONE (05:00)
[2023-12-26] MEDS ORDERED: methaDONE HCL 10 MG TABLET (FOR DETOX USE ONLY) PO ONE (10:00)
== END 2023-12-25 11:05 | disposition home or self-care (01) | DRG 897 ==
LOC: YASAS 12:19 → Y6N 13:44
PROVIDERS: ADMIT Allergy & Immunology; ATTEND Surgery
PROC: HZ2ZZZZ Detoxification Services for Substance Abuse Treatment (ICD-10-PCS; principal; 2023-12-22)
DX: F10.230 Alcohol dependence with withdrawal, uncomplicated (principal); F19.282 Other psychoactive substance dependence with psychoactive substance-induced sleep disorder; F11.20 Opioid dependence, uncomplicated; F17.210 Nicotine dependence, cigarettes, uncomplicated; F41.8 Other specified anxiety disorders; I25.10 Atherosclerotic heart disease of native coronary artery without angina pectoris; I10 Essential (primary) hypertension; I25.2 Old myocardial infarction; J44.9 Chronic obstructive pulmonary disease, unspecified; J45.20 Mild intermittent asthma, uncomplicated; R78.5 Finding of other psychotropic drug in blood
CPT/HCPCS: 36415; 80053; 80305; 80307; 82140; 85027; 86780; 93005; 93010